=== PATIENT | male | born 1945 | race Caucasian/White ===

== ENCOUNTER 2021-03-12 10:03 | Observation (INO) ==
[2021-03-12] MEDS ORDERED: Lidocaine/EPI 1:100k 1% 30 ML VIAL ONE (11:02)
[2021-03-12] MEDS ORDERED: Oxymetazoline Nasal Spray Bottle 30ML NS ONE (11:02)
[2021-03-12 11:19] LABS: Basophils % 0.1 %; Hematocrit 42.8 % (37.5-50.1); Immature Granulocytes % 0.2 % (0-4); Lymphocytes # 2.3 K/mcL (0.6-4.6); Mean Corpuscular HGB Conc 32.7 g/dL (31.6-35.5); Mean Corpuscular Hemoglobin 29.1 pg (28.0-33.3); Mean Platelet Volume 11.8 fL (9.4-12.4); Monocytes # 0.9 K/mcL (0.0-1.3); Monocytes % 6.9 %; Neutrophils # 10.1 K/mcL (1.6-8.9); Platelet Count 255 K/mcL (140-400); Red Blood Count 4.81 M/mcL (4.19-5.50); Red Cell Distribution Width 14.1 % (11.5-14.5); Segmented Neutrophils % 75.8 %; White Blood Count 13.4 K/mcL (4.3-11.1)
[2021-03-12 11:27] LABS: Prothrombin Time 11.5 Seconds (9.4-12.1)
[2021-03-12] MEDS ORDERED: Ondansetron 4 MG/2 ML VIAL IVP PRN ×2 (11:29→12:51)
[2021-03-12] MEDS ORDERED: *HR* HYDROmorphone PF 0.5 MG/0.5 ML SYRINGE IVP PRN (11:29)
[2021-03-12 11:30] LABS: Activated Partial Thrombo Time 30.5 Seconds (26.0-36.0)
[2021-03-12 11:51] LABS: BUN/Creatinine Ratio 34 (6-26); Blood Urea Nitrogen 30 mg/dL (8-23); Carbon Dioxide 19 mEq/L (23-29); Chloride 106 mEq/L (98-107); Glucose 217 mg/dL (70-105); Osmolality,Calculated 293 (280-300); Potassium 4.8 mEq/L (3.5-5.1); Sodium 135 mEq/L (136-145); eGFR For African Americans > 60 (> 60); eGFR For Non-African Americans > 60 (> 60)
[2021-03-12] MEDS ORDERED: Acetaminophen 325 MG TABLET PO PRN (12:51)
[2021-03-12] MEDS ORDERED: Naloxone 0.4 MG/ML INJ IVP PRN (12:51)
[2021-03-12] MEDS ORDERED: D5% in Water 1,000 ML IVC PRN (12:56)
[2021-03-12] MEDS ORDERED: Dextrose Gel 15 GM/37.5 ML TUBE PO PRN ×2 (12:56)
[2021-03-12] MEDS ORDERED: *HR* Dextrose 50 % in Water (Syg) 50 ML SYRINGE IVP PRN (12:56)
[2021-03-12] MEDS: Insulin LISPRO 300 UNITS/3 ML VIAL SUBQ SCH (17:58)
[2021-03-12] MEDS: carvediloL 6.25 MG TABLET PO SCH (20:09)
[2021-03-12] MEDS ORDERED: Insulin LISPRO 300 UNITS/3 ML VIAL SUBQ SCH (21:30)
[2021-03-13] MEDS ORDERED: lisinopriL 5 MG TABLET PO SCH (09:00)
[2021-03-13] MEDS ORDERED: Magnesium Oxide 400 MG TABLET PO SCH (09:00)
[2021-03-13] MEDS: carvediloL 6.25 MG TABLET PO SCH (09:32)
[2021-03-13] MEDS: Insulin LISPRO 300 UNITS/3 ML VIAL SUBQ SCH ×2 (09:33→12:48)
[2021-03-13 11:33] VITALS: BP 117/71; PULSE 87; TEMP 98.4; O2SAT 94
== END 2021-03-13 13:04 | disposition home or self-care (01) ==
LOC: EMEROOARM 10:03 → 3ANU 10:03 → EMEROOARM 11:24
PROVIDERS: ADMIT Otolaryngology; ATTEND Otolaryngology